=== PATIENT | male | born 1995 | race Caucasian/White ===

== ENCOUNTER 2017-06-13 21:36 | Emergency (ER) | payer BC ==
[~2017-06-13] VITALS: Ht 182.9 cm; Wt 81.8 kg
[2017-06-13 21:39] VITALS: BP 128/84; PULSE 94; TEMP 36.4; O2SAT 97; Ht 182.9 cm; Wt 81.8 kg
--- NOTE | 2017-06-13 22:12 | DIAGNOSTIC IMAGING REPORT ---
L ANKLE MIN 3 VIEWS ROUTINE CLINICAL HISTORY: Left ankle pain status post trauma COMPARISON: None. DISCUSSION: There is a 1.5 mm bony density located inferior to the lateral malleolar tip, likely are presenting an age-indeterminate avulsion. There is lateral soft tissue swelling. A small joint effusion cannot be excluded. The ankle mortise appears intact IMPRESSION: 1. Lateral soft tissue swelling and equivocal joint effusion 2. Tiny age-indeterminate avulsion fragment adjacent to the lateral malleolar tip Electronically signed by: Corby Navarro M.D. 06/13/2017 10:10 PM Dictated Date/Time: 06/13/2017 10:09 PM
--- NOTE | 2017-06-13 22:38 | EMERGENCY ROOM VISIT NOTE ---
ED Visit Note First contact with patient: 21:41 CHIEF COMPLAINT: Ankle pain HISTORY OF PRESENT ILLNESS: This 21-year-old patient presents to the emergency department with family after sustaining an injury to the left ankle and foot with a twisting, inversion motion when he misstepped on a stair. The patient complains of pain along the outside of the ankle. The patient denies pain of the foot. The patient rates the pain as throbbing and 5/10. The patient is able to bear weight on the foot. Constant pain, worse with movement, weight bearing, and the dependent position. No knee pain, the patient is able to move their toes. No numbness or weakness of the foot, no laceration. The patient has not had a previous fracture to this ankle. The patient has taken nothing for the pain. The patient denies any other injury. He has a history of recurrent sprains to this ankle. REVIEW OF SYSTEMS: A 6 system review of systems was completed with positives and pertinent negatives listed in the HPI. ALLERGIES: None MEDICATIONS: None PMH: Ankle sprain SOCIAL HISTORY: No drug use PHYSICAL EXAM: Vital Signs: Reviewed Nurse's notes, vital signs stable. GENERAL : Pleasant male, no acute distress, but appears in pain, well-developed, well- nourished. MENTAL STATUS: Alert, oriented to person place and time, and cooperative. MUSCULOSKELETAL: The left ankle is swollen and tender over the lateral malleolus, but the skin is intact and there is no ligamentous instability. There is no fifth metatarsal tenderness. There is no tenderness over the rest of the foot. There is no calf or tibia/fibular tenderness. There is no visual deformity. The foot and toes are warm and well-perfused. Dorsalis pedis pulse 2+. Sensation to pain and light touch is intact. Capillary refill less than 2 seconds. EMERGENCY DEPARTMENT COURSE: I examined the patient. Patient declined pain medicine. X-rays of the left ankle were reviewed by myself and read by radiology and reveal L ANKLE MIN 3 VIEWS ROUTINE CLINICAL HISTORY: Left ankle pain status post trauma COMPARISON: None. DISCUSSION: There is a 1.5 mm bony density located inferior to the lateral malleolar tip, likely are presenting an age-indeterminate avulsion. There is lateral soft tissue swelling. A small joint effusion cannot be excluded. The ankle mortise appears intact IMPRESSION: 1. Lateral soft tissue swelling and equivocal joint effusion 2. Tiny age-indeterminate avulsion fragment adjacent to the lateral malleolar tip Electronically signed by: Corby Navarro M.D.. AirGel splint was applied to the ankle under my direction and the position was satisfactory. Neurovascular status was rechecked and intact. The patient was instructed on the use of crutches. Family was advised to follow-up with orthopedics if symptoms persist or here in the ER sooner for severe pain, numbness, tingling, worsening signs or symptoms or as needed. The patient was discharged home in good condition. Differential diagnoses include sprain, strain, fracture, dislocation and other etiologies were considered. DIAGNOSIS: Left ankle sprain, possible avulsion fx DISCHARGE INSTRUCTIONS: Ibuprofen(Motrin, Advil) may be used for fever or pain. Use 600mg every six hours as needed. Take with food. Avoid using more than 2400mg in a 24 hour period. Do not use 2400mg per day for more than three consecutive days without physician direction. Prolonged inappropriate use can lead to stomach upset or ulcers. This medication can be taken if you need to drive, work, or perform activities which may be dangerous when taking narcotic pain medication. (AND/OR) Acetaminophen(Tylenol) may be used for fever or pain. Use 1000mg every six hours as needed. Avoid using more than 3000mg in a 24 hour period. This medication can be taken if you need to drive, work, or perform activities which may be dangerous when taking narcotic pain medication. Ice compresses for 20 minutes at a time four times daily for 2-3 days. Use the crutches as instructed. Rest and elevate your injury. Wear ankle gelsplint Do not have it so tight that you cannot feel your foot. Continue current medications. Return to the ER immediately for any numbness, tingling, severe pain, extreme swelling in the extremity or as needed. Call Orthopedics Thursday to arrange follow up for your injury. Current/Historical Medications No Active Prescriptions or Reported Meds Allergies Coded Allergies: No Known Allergies (Unverified , 06/13/17) Vital Signs Date Time Temp Pulse Resp B/P (MAP) Pulse Ox O2 Delivery O2 Flow Rate FiO2 06/13/17 21:39 36.4 94 16 128/84 97 Room Air Departure Information Prescriptions No Active Prescriptions or Reported Meds Referrals No Doctor, Assigned (PCP) Patient Instructions [facility]
== END 2017-06-13 22:47 | disposition home or self-care (01) ==
LOC: C.EDB 21:39 → C.EDD 22:47
DX: S93.402A Sprain of unspecified ligament of left ankle, initial encounter (principal); X50.1XXA Overexertion from prolonged static or awkward postures, initial encounter